=== PATIENT | female | born 1950 | race Caucasian/White ===

== ENCOUNTER 2016-12-31 11:20 | Inpatient (IN) | payer OTHER, MEDICARE ==
[2016-12-31] MEDS ORDERED: SODIUM CHLORIDE 0.9% 1,000 ML IV STA (11:48)
[2016-12-31] MEDS ORDERED: RX INFO: IV CONTRAST WAS GIVEN 1 EACH MISC MISCELLANE PRN (11:55)
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
[2016-12-31 12:15] LABS: Basophils % (A) 1 %; CH 32.8; CHCM 35.1; Eosinophils # (A) 0.1 k/uL (0-0.7); Eosinophils % (A) 1 %; HCT 37.4 % (34.0-46.0); HDW 2.01; HGB 12.7 gm/dL (11.4-16.0); Luc # (Auto) 0.14; Luc % (Auto) 3; Lymphocytes # (A) 1.4 k/uL (1.0-4.8); Lymphocytes % (A) 27 %; MCH 31.8 pg (25.0-35.0); MCHC 33.9 g/dL (31.0-37.0); MCV 93.8 fL (80.0-100.0); Mean Platelet Volume 6.8; Monocytes # (A) 0.3 k/uL (0-1.0); Monocytes % (A) 6 %; Neutrophils # (A) 3.3 k/uL (1.3-7.7); Neutrophils % (A) 63 %; RBC 3.99 m/uL (3.80-5.40); RDW 13.2 % (11.5-15.5); WBC 5.3 k/uL (3.8-10.6); WBC (Perox) 5.83
[2016-12-31 12:30] LABS: ALT 26 U/L (9-52); AST 22 U/L (14-36); Alkaline Phosphatase 69 U/L (38-126); Anion Gap 12 mmol/L; Blood Urea Nitrogen 22 mg/dL (7-17); Calcium 9.5 mg/dL (8.4-10.2); Carbon Dioxide 29 mmol/L (22-30); Chloride 91 mmol/L (98-107); Glucose 113 mg/dL (74-99); Non-African American GFR(MDRD) 56 (>60 ml/min/1.73 sqM); Potassium 3.1 mmol/L (3.5-5.1); Sodium 132 mmol/L (137-145); Total Bilirubin 0.9 mg/dL (0.2-1.3); Total Protein 6.6 g/dL (6.3-8.2)
[2016-12-31 12:31] LABS: Prothrombin Time 10.4 sec (9.0-12.0)
[2016-12-31 12:41] LABS: Creatine Kinase 119 U/L (30-135)
[2016-12-31 12:54] LABS: Creatine Kinase MB 1.9 ng/mL (0.0-2.4); Troponin I <0.012 ng/mL (0.000-0.034)
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
[2016-12-31 13:48] LABS: Appearance,Urine Clear (Clear); Bilirubin,Urine Negative (Negative); Glucose,Urine (UA) Negative (Negative); Ketones,Urine Trace (Negative); Leukocyte Esterase,Urine Small (Negative); Nitrite,Urine Negative (Negative); PH, Urine 6.5 (5.0-8.0); Particle Count 2399; Protein,Urine Trace (Negative); RBC,Urine 5 /hpf (0-5); Specific Gravity,Urine 1.013 (1.001-1.035); Squamous Epithelial Cell,Urine 1 /hpf (0-4); UA Billing (MACRO vs. MICRO) MICRO; Urobilinogen,Urine <2.0 mg/dL (<2.0); WBC,Urine 2 /hpf (0-5)
[2016-12-31] MEDS ORDERED: ACETAMINOPHEN TAB 325 MG TAB PO PRN (14:09)
[2016-12-31] MEDS ORDERED: NALOXONE 0.4 MG/ML 1 ML VIAL IV PRN (14:09)
[2016-12-31] MEDS: SODIUM CHLORIDE 0.9% 1,000 ML IV SCH (15:21)
[2016-12-31 18:16] LABS: Creatine Kinase 218 U/L (30-135)
[2016-12-31 18:27] LABS: Troponin I <0.012 ng/mL (0.000-0.034)
--- NOTE | 2016-12-31 20:02 | US ---
EXAMINATION TYPE: US carotid duplex BILAT DATE OF EXAM: 12/31/2016 COMPARISON: NONE CLINICAL HISTORY: syncope. EXAM MEASUREMENTS: RIGHT: Peak Systolic Velocity (PSV) cm/sec ----- Right CCA: 66.7 ----- Right ICA: 81.3 ----- Right ECA: 72.6 ICA/CCA ratio: 1.2 RIGHT: End Diastole cm/sec ----- Right CCA: 18.8 ----- Right ICA: 23.1 ----- Right ECA: 12.9 LEFT: Peak Systolic Velocity (PSV) cm/sec ----- Left CCA: 78.6 ----- Left ICA: 74.9 ----- Left ECA: 86.6 ICA/CCA ratio: 1.0 LEFT: End Diastole cm/sec ----- Left CCA: 23.4 ----- Left ICA: 27.0 ----- Left ECA: 18.0 VERTEBRALS (direction of flow): Right Vertebral: Antegrade Left Vertebral: Antegrade Mild amount of plaque visualized bilaterally, no elevated velocities IMPRESSION: There is antegrade flow in the vertebral arteries. The images and measurements suggest t o 50% stenosis in both internal carotid arteries. Criteria for Assigning % of Stenosis / Diameter reduction (Estimation based on the indirect measurements of the internal carotid artery velocities (ICA PSV). 1. Normal (no stenosis)=ICA PSV < 125 cm/s: ratio < 2.0: ICA EDV<40 cm/s. 2. Less than 50% stenosis=ICA PSV < 125 cm/s: ratio < 2.0: ICA EDV<40 cm/s. 3. 50 to 69% stenosis=ICA PSV of 125 to 230 cm/s: ration 2.0 ? 4.0: ICA EDV 40-100 cm/s. 4. Greater than 70% stenosis to near occlusion= ICA PSV > 230 cm/s: ratio > 4.0: ICA EDV > 100 cm/s. 5. Near occlusion= ICA PSV velocities may be low or undetectable: variable ratio and ICA EDV. 6. Total occlusion=unable to detect flow.
[2016-12-31] MEDS ORDERED: Potassium Replacement Protocol 1 EACH MISC MISCELLANE PRN (21:46)
[2016-12-31] MEDS ORDERED: HYDROmorphone 1 MG/ML 1 ML SYRINGE IVP PRN (21:58)
[2016-12-31] MEDS ORDERED: TEMAZEPAM 15 MG CAP PO PRN (21:58)
[2016-12-31] MEDS ORDERED: ALPRAZolam 0.25 MG TAB PO PRN (21:58)
[2016-12-31] MEDS ORDERED: HYDROcodone/APAP 5-325MG 1 EACH TAB PO PRN (21:58)
[2016-12-31] MEDS: POTASSIUM CHLORIDE ER 20 MEQ TAB.ER PO SCH (22:27)
[2016-12-31] MEDS: LOSARTAN 50 MG TAB PO SCH ×2 (22:27→22:32)
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
[2016-12-31 23:59] LABS: Creatine Kinase 176 U/L (30-135)
[2017-01-01 00:12] LABS: Troponin I <0.012 ng/mL (0.000-0.034)
[2017-01-01 00:19] LABS: Creatine Kinase MB 4.2 ng/mL (0.0-2.4)
[2017-01-01 00:24] LABS: Creatine Kinase MB 6.5 ng/mL (0.0-2.4)
[2017-01-01 06:20] LABS: Basophils % (A) 0 %; CH 32.9; CHCM 34.5; Eosinophils # (A) 0.1 k/uL (0-0.7); Eosinophils % (A) 2 %; HCT 37.4 % (34.0-46.0); HDW 1.96; HGB 12.5 gm/dL (11.4-16.0); Luc # (Auto) 0.11; Luc % (Auto) 2; Lymphocytes # (A) 1.6 k/uL (1.0-4.8); Lymphocytes % (A) 25 %; MCH 31.8 pg (25.0-35.0); MCHC 33.3 g/dL (31.0-37.0); MCV 95.7 fL (80.0-100.0); Mean Platelet Volume 7.1; Monocytes # (A) 0.5 k/uL (0-1.0); Monocytes % (A) 8 %; Neutrophils # (A) 4.2 k/uL (1.3-7.7); Neutrophils % (A) 65 %; RBC 3.91 m/uL (3.80-5.40); RDW 13.3 % (11.5-15.5); WBC 6.5 k/uL (3.8-10.6); WBC (Perox) 6.56
[2017-01-01 06:30] LABS: Anion Gap 9 mmol/L; Blood Urea Nitrogen 13 mg/dL (7-17); Calcium 9.5 mg/dL (8.4-10.2); Carbon Dioxide 27 mmol/L (22-30); Chloride 95 mmol/L (98-107); Glucose 89 mg/dL (74-99); Non-African American GFR(MDRD) >60 (>60 ml/min/1.73 sqM); Potassium 3.9 mmol/L (3.5-5.1); Sodium 131 mmol/L (137-145)
[2017-01-01] MEDS ORDERED: PANTOPRAZOLE 40 MG TABLET PO SCH (07:30)
[2017-01-01] MEDS ORDERED: CYANOCOBALAMIN 500 MCG TAB PO SCH (09:00)
[2017-01-01] MEDS ORDERED: CYANOCOBALAMIN-FA-PYRIDOXINE 1 EACH TAB PO SCH (09:00)
[2017-01-01] MEDS ORDERED: CALCIUM CARBONATE 500 MG CHEWABLE PO SCH (09:00)
[2017-01-01] MEDS: LOSARTAN 50 MG TAB PO SCH (09:58)
--- NOTE | 2017-01-01 10:26 | ECHOF ---
Referral Reason:syncope MEASUREMENTS -------- HEIGHT: 165.1 cm WEIGHT: 65.8 kg BP: 110/63 RVIDd: 3.5 cm (< 3.3) IVSd: 1.0 cm (0.6 - 1.1) LVIDd: 4.1 cm (3.9 - 5.3) LVPWd: 1.0 cm (0.6 - 1.1) IVSs: 1.4 cm LVIDs: 3.1 cm LVPWs: 1.2 cm LAESV Index (A-L): 20.44 ml/m Ao Diam: 3.7 cm (2.0 - 3.7) AV Cusp: 1.8 cm (1.5 - 2.6) LA Diam: 2.6 cm (2.7 - 3.8) MV EXCURSION: 13.991 mm (> 18.000) MV EF SLOPE: 54 mm/s (70 - 150) EPSS: 0.5 cm MV E Brice: 0.63 m/s MV DecT: 313 ms MV A Brice: 0.97 m/s MV E/A Ratio: 0.65 RAP: 5.00 mmHg RVSP: 33.34 mmHg FINDINGS -------- Sinus rhythm. This was a technically adequate study. Overall left ventricular systolic function is normal with, an EF between 55 - 60 %. The right ventricle is normal in size and function. Normal LA size by volume 22+/-6 ml/m2. The right atrium is normal in size. Aortic valve is trileaflet and is mildly thickened. There is no evidence of aortic regurgitation. There is no evidence of aortic stenosis. The mitral valve leaflets are mildly thickened. There is trace to mild mitral regurgitation. Trace tricuspid regurgitation present. There is no evidence of pulmonary hypertension. The right ventricular systolic pressure, as measured by Doppler, is 33.34mmHg. Pulmonic valve appears structurally normal. The aortic root size is normal. Normal inferior vena cava with normal inspiratory collapse consistent with estimated right atrial pressure of 5 mmHg. The pericardium is normal. There is no pericardial effusion. CONCLUSIONS -------- 1. Sinus rhythm. 2. The aortic root size is normal. 3. There is no pericardial effusion. 4. Overall left ventricular systolic function is normal with, an EF between 55 - 60 %. 5. Normal LA size by volume 22+/-6 ml/m2. 6. Aortic valve is trileaflet and is mildly thickened. 7. The mitral valve leaflets are mildly thickened. 8. There is trace to mild mitral regurgitation. 9. Trace tricuspid regurgitation present. 10. There is no evidence of pulmonary hypertension. 11. The right ventricular systolic pressure, as measured by Doppler, is 33.34mmHg. INVOICE CODER: Terrell Pearson RDCS
--- NOTE | 2017-01-01 11:09 | CONS ---
DATE OF CONSULTATION: CHIEF COMPLAINT: Syncope. This is a 66-year-old lady with history of dyslipidemia and hypertension, who presented to hospital having had an episode of syncope. She suddenly felt sudden onset symptom of feeling hot, not feeling well, and then she passed out. Did not have bladder or bowel incontinence. Did not have focal neurological deficits, resolved spontaneously. She has had one other episode in [place] a few years ago. There is no prior cardiac history. She ruled out for myocardial infarction. She had a CT scan of the chest that showed mild aneurysmal dilatation of the aorta at 4.1 cm. She had an echocardiogram that showed normal LV function without any evidence of pulmonary hypertension. She had a carotid duplex study that revealed bilateral carotid stenosis. Medications include Crestor and losartan. Family history is negative for premature coronary artery disease. Social history is negative for smoking, EtOH use or drug abuse. REVIEW OF SYSTEMS: HEENT is unremarkable. CARDIAC: As described above. RESPIRATORY: Negative. GI: Negative. GENITOURINARY: Negative. ALLERGY/IMMUNOLOGY: Negative. SKIN: Negative. MUSCULOSKELETAL: Significant for arthritis. PSYCHOSOCIAL: Negative. ENDOCRINE: Negative. DERMATOLOGIC: Negative. CONSTITUTIONAL: Negative. ROADS SUPERINTENDENT: Significant for syncope. On exam, comfortable at rest. Vital signs are stable. There is no jugular venous distention. Carotid upstroke is normal. There is no bruit. Chest exam reveals good air entry bilaterally. Heart exam reveals first and second heart sounds. Systolic murmur at the apex. Abdomen is soft. Exam of the extremities did not reveal edema. Peripheral pulses are felt. ROADS SUPERINTENDENT exam did not reveal focal neurological deficits. EKG shows normal sinus rhythm without ST-T wave changes. Cardiac enzymes are negative. Labs show a hemoglobin of 12.5, troponins are negative. ASSESSMENT: 1. Syncope, rule out cardiac causes. 2. Hypertension. 3. Dyslipidemia. PLAN: Patient is doing well, probably had a vasovagal syncope. Cardiac work-up is negative. Other than the mild ascending aortic aneurysm, she can be discharged home and will consider an outpatient stress test.
[2017-01-01 11:24] VITALS: RESP 16
[2017-01-01] MEDS: SODIUM CHLORIDE 0.9% 1,000 ML IV SCH (11:48)
[2017-01-01] MEDS ORDERED: MULTIVITAMINS, THERA 1 EACH TAB PO SCH (12:00)
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
[2017-01-01 15:08] VITALS: BP 154/76; PULSE 74; TEMP 97.1
[2017-01-01] MEDS ORDERED: ATORVASTATIN 20 MG TAB PO SCH (21:00)
--- NOTE | 2017-01-02 18:12 | DS ---
DATE OF ADMISSION: 12/31/2016 DATE OF DISCHARGE: 01/01/2017 DATE OF SERVICE: 01/01/2017 FINAL DIAGNOSES: 1. Syncope for evaluation, possible vasovagal. 2. Hyponatremia. 3. Hypokalemia. 4. Increased BUN, possibly indicating dehydration. 5. Increased creatine kinase with mild rhabdomyolysis. 6. Mild aortic aneurysm, 4.1 cm. 7. Nodules in the left lung, 6 mm and 5 mm. 8. Left thyroid nodule measuring 1.3 cm. 9. History of hyperlipidemia. 10. History of hypertension. 11. History of syncope. 12. History of degenerative joint disease. 13. Remote history of nicotine dependence. 14. FULL CODE. DISCHARGE DISPOSITION: The patient will be discharged in stable condition with guarded prognosis. HISTORY OF PRESENT ILLNESS: This 66-year-old woman with a past medical history of multiple medical problems, as mentioned above, was admitted with syncope. The patient was treated symptomatically, improved significantly. CT scan showed multiple findings as above. EEG was performed; findings are pending at this time. Cardiology and Dr. Jerez saw the patient. Carotid Doppler showed 50% stenosis in both internal carotid arteries. On exam, vitals are stable. CARDIOVASCULAR SYSTEM: S1, S2 muffled. ABDOMEN: Soft. No hepatosplenomegaly. NERVOUS SYSTEM: No focal deficit. DISCHARGE ADVICE AND MEDICATIONS: 1. Diet is cardiac. 2. Activity limited until followup. 3. Follow up with Dr. Aragon in 2 to 3 days. 4. Follow up with Dr. Jerez and Dr. Ball as advised. 5. Calcium carbonate 600 mg p.o. daily. 6. Vitamin B12 1000 mcg p.o. daily. 7. Cozaar 100 mg p.o. daily. 8. Losartan hydrochlorothiazide 1 p.o. daily. 9. Multivitamins 1 p.o. daily. 10. Crestor 10 mg at bedtime. 11. Vitamin B complex 1 capsule p.o. daily. The findings on the CT scans, CTA to be followed in the outpatient setting on a regular basis.
--- NOTE | 2017-01-05 08:07 | EEG ---
DATE OF SERVICE: 01/01/2017 INDICATIONS FOR EXAMINATION: Syncope. AGE: 66Y DESCRIPTION OF PROCEDURE: This EEG was performed using a 21 channel digital electroencephalograph following international 10-20 system. DESCRIPTION OF THE RECORDING: From the beginning of the tracing, with the patient's eyes closed, the background rhythm was mostly consisting of 9 Hz alpha frequency in the posterior occipital leads. No obvious asymmetry was seen. Photic stimulation was performed with a good driving response seen. No pathological waves were elicited. Hyperventilation was not performed. Rare movement artifacts are seen. The patient remains awake throughout the tracing. No epileptiform discharges are seen. Her EKG lead showed regular rate and rhythm. INTERPRETATION: This awake EEG can be considered within normal limits. There was no asymmetry seen. No epileptiform discharges were noticed. The absence of epileptiform discharges does not rule out the diagnosis of epilepsy, therefore, clinical correlation is recommended.
== END 2017-01-01 16:02 | disposition home or self-care (01) | DRG 312 ==
LOC: EC 11:20 → 6SEL 14:09
PROVIDERS: ADMIT Hospitalist; ATTEND Hospitalist
DX: R55 Syncope and collapse (principal); M62.82 Rhabdomyolysis; I71.2 Thoracic aortic aneurysm, without rupture; E87.1 Hypo-osmolality and hyponatremia; I65.23 Occlusion and stenosis of bilateral carotid arteries; E87.6 Hypokalemia; R07.9 Chest pain, unspecified; I10 Essential (primary) hypertension; E86.0 Dehydration; E04.1 Nontoxic single thyroid nodule; M19.90 Unspecified osteoarthritis, unspecified site; E78.5 Hyperlipidemia, unspecified; N60.02 Solitary cyst of left breast; R91.8 Other nonspecific abnormal finding of lung field; Z87.891 Personal history of nicotine dependence; Z79.899 Other long term (current) drug therapy; Z82.3 Family history of stroke; Z90.710 Acquired absence of both cervix and uterus; Z86.79 Personal history of other diseases of the circulatory system; V48.0XXA Car driver injured in noncollision transport accident in nontraffic accident, initial encounter; Y92.410 Unspecified street and highway as the place of occurrence of the external cause
CPT/HCPCS: 36415; 70450; 71020; 71275; 80048; 80053; 80306; 81001; 82550; 82553; 84484; 85025; 85610; 85730; 93005; 93306; 93880; 95819; 99285